=== PATIENT | female | born 1955 | race Caucasian/White ===

== ENCOUNTER 2020-01-13 08:41 | Outpatient (CLI) | payer BC, SELFPAY ==
[2020-01-13 09:19] LABS: Alanine Aminotransferase 37 U/L (4-35); Albumin Level 4.8 g/dL (3.5-5.1); Alkaline Phosphatase 47 U/L (38-126); Anion Gap 11 mmol/L (8-16); Aspartate Amino Transferase 41 U/L (14-36); Bilirubin,Total 0.6 mg/dL (0.2-1.3); Blood Urea Nitrogen 18 mg/dL (7-17); Calcium 10.2 mg/dL (8.4-10.2); Carbon Dioxide 26 mmol/L (22-30); Chloride 99 mmol/L (98-107); Cholesterol 159 mg/dL (0-200); Estimated Glomerular Filt Rate 38; Glucose 117 mg/dL (65-105); HDL Direct 55 mg/dL; Sodium 136 mmol/L (137-145); Triglycerides 226 mg/dL (<150)
[2020-01-13 09:29] LABS: LDL Cholesterol Direct 76 mg/dL
[2020-01-13 10:09] LABS: Hemoglobin A1C 5.8 % (<5.7)
== END 2020-01-13 08:42 | disposition home or self-care (01) ==
PROVIDERS: PCP Family Medicine; Visit Provider Family Medicine
DX: I10 Essential (primary) hypertension (principal); E78.2 Mixed hyperlipidemia; E11.9 Type 2 diabetes mellitus without complications
CPT/HCPCS: 36415; 80053; 80061; 83036

== ENCOUNTER 2020-01-22 15:48 | Outpatient (CLI) | payer BC, SELFPAY ==
--- NOTE | ~2020-01-22 | MM_ITS ---
EXAMINATION: MM screening shereen BI w eric HISTORY: Screening mammogram TECHNIQUE: Craniocaudal and mediolateral oblique 3-D tomosynthesis images were obtained and synthetic 2-D images were generated. CAD analysis was submitted and interpreted. COMPARISON: 08/25/2018 bilateral digital screening mammogram 09/12/2018 diagnostic right digital mammogram and limited right breast ultrasound examination BREAST PARENCHYMAL COMPOSITION: The breasts are almost entirely fatty. FINDINGS: There is no evidence of suspicious mass, calcification, or architectural distortion to sugg est malignancy in either breast. There has been no suspicious interval change. IMPRESSION: 1. No mammographic evidence of malignancy. 2. Recommend routine screening mammography in one year. BI-RADS Category 1: Negative Reviewed, dictated and finalized at location A.
== END 2020-01-22 15:49 | disposition home or self-care (01) ==
LOC: ANHIMG 15:51
PROVIDERS: PCP Family Medicine; Visit Provider Family Medicine
DX: Z12.31 Encounter for screening mammogram for malignant neoplasm of breast (principal)
CPT/HCPCS: 77063; 77067

== ENCOUNTER 2020-02-14 10:51 | Outpatient (CLI) | payer BC, SELFPAY ==
[2020-02-14 11:49] LABS: Hematocrit 38.6 % (37.0-47.0); Hemoglobin 13.3 g/dL (12.0-15.0); Mean Corpuscular HGB Conc 34.5 g/dl (32-36); Mean Corpuscular Hemoglobin 31.1 pg (26-34); Mean Corpuscular Volume 90.4 fl (80-100); Mean Platelet Volume 9.2 fl (7.4-10.4); Platelet Count Result 364 k/mm3 (150-375); Red Blood Count 4.27 M/mm3 (4.2-5.4); Red Cell Distribution Width 12.2 % (11.5-14.5); White Blood Count 8.3 K/mm3 (4.5-10.0)
[2020-02-14 11:53] LABS: Add Urine Microscopic? NO; Appearance Urine Clear (Clear); Bilirubin Urine Negative (Negative); Blood Urine Negative (Negative); Color Urine Straw (Yellow); Glucose Urine UA Negative (Negative); Ketones Urine Negative (Negative); Leukocyte Esterase Ur Negative LEU/UL (NEGATIVE); Nitrate Urine Negative (Negative); Protein Urine Negative (Negative); Specific Grav Ur 1.012 (1.001-1.035); Urobilinogen Urine Negative mg/dL (<2.0)
[2020-02-14 12:00] LABS: Creatinine Urine 80.1 mg/dL; Total Protein Urine Random 9 mg/dL
[2020-02-14 12:03] LABS: Anion Gap 13 mmol/L (8-16); Blood Urea Nitrogen 23 mg/dL (7-17); Calcium 10.2 mg/dL (8.4-10.2); Carbon Dioxide 25 mmol/L (22-30); Chloride 96 mmol/L (98-107); Estimated Glomerular Filt Rate 41; Glucose 119 mg/dL (65-105); Phosphorus 3.4 mg/dL (2.5-4.5); Potassium 4.5 mmol/L (3.4-5.0); Sodium 134 mmol/L (137-145)
[2020-02-14 12:21] LABS: Complement C3 159 mg/dL (88-165)
[2020-02-14 12:37] LABS: Erythrocyte Sedimentation Rate 18 mm/hr (0-20); Vitamin D 25 Hydroxy 47.8 ng/mL
[2020-02-17 20:25] LABS: Complement Total CH50 >60 U/mL (31-60)
[2020-02-18 23:43] LABS: Kappa\\Lambda Light Chains 1.43 (0.26-1.65); Lambda Light Chain 8.7 mg/L (5.7-26.3)
== END 2020-02-14 10:52 | disposition home or self-care (01) ==
LOC: ANHLAB 10:55
PROVIDERS: PCP Family Medicine; Visit Provider Internal Medicine Nephrology
DX: N18.30 Chronic kidney disease, stage 3 unspecified (principal)
CPT/HCPCS: 36415; 80069; 81003; 82306; 82570; 83883; 83970; 84156; 85027; 85652; 86038; 86160; 86162; 86334; 86335

== ENCOUNTER 2020-02-28 10:38 | Outpatient (CLI) | payer BC, SELFPAY ==
--- NOTE | ~2020-02-28 | US_ITS ---
US renal BI 02/28/2020 14:01 Procedure: Realtime transabdominal ultrasound of the kidneys and bladder. Indication: Chronic kidney disease Comparison: Ultrasound dated 03/14/2019 Findings: Renal echotexture is normal bilaterally without hydronephrosis, contour deforming mass or r enal calculus. The right kidney measures 10.8 cm and left kidney measures 10.8 cm. Bladder within no rmal limits. Impression: 1: Unremarkable renal ultrasound. No stones, masses or hydronephrosis. Reviewed, dictated and finalized at location B. Impression: 1: Unremarkable renal ultrasound. No stones, masses or hydronephrosis.
[2020-02-28 16:48] LABS: Total Volume 24 Hour Urine 2800 ml; Urea Nitrogen 24 Hour Urine 9.9 G/DAY (12-20)
== END 2020-02-28 10:39 | disposition home or self-care (01) ==
LOC: ANHIMG 10:42
PROVIDERS: PCP Family Medicine; Visit Provider Internal Medicine Nephrology
DX: N18.32 Chronic kidney disease, stage 3b (principal)
CPT/HCPCS: 76775; 81050; 84540; 86335

== ENCOUNTER 2020-05-06 11:23 | Outpatient (CLI) | payer BC, SELFPAY ==
--- NOTE | ~2020-05-06 | US_ITS ---
EXAMINATION: US renal BI EXAM DATE: 05/06/2020 12:13 INDICATION: Chronic kidney disease, renal failure. TECHNIQUE: Multiple grayscale and Doppler images of the kidneys were obtained (by a technologist who performed the scan) and subsequently reviewed. Comparison is made to prior examination from 0. FINDINGS: There is significant bilateral renal cortical thinning with large quantity of echogenic hil ar fat. Right kidney: There is normal contour and echogenicity. It measures 11.5 x 4.7 x 4.2 centimeters. T here are no focal renal lesions identified. There is no hydronephrosis. Left kidney: There is normal contour and echogenicity. It measures 9.6 x 5.5 x 4.5 centimeters. The re are no focal renal lesions identified. There is no hydronephrosis. Bladder unremarkable. IMPRESSION: 1. Bilateral renal cortical thinning with normal overall size. 2. No hydronephrosis. Reviewed, dictated and finalized at location B. RER'S AIDE
[2020-05-06 12:47] LABS: Albumin Level 4.5 g/dL (3.5-5.1); Anion Gap 9 mmol/L (8-16); Blood Urea Nitrogen 27 mg/dL (7-17); Carbon Dioxide 25 mmol/L (22-30); Chloride 101 mmol/L (98-107); Estimated Glomerular Filt Rate 45; Glucose 97 mg/dL (65-105); Phosphorus 4.2 mg/dL (2.5-4.5); Potassium 4.3 mmol/L (3.4-5.0); Sodium 135 mmol/L (137-145)
[2020-05-06 12:51] LABS: Creatinine Urine 29.4 mg/dL; Total Protein Urine Random 10 mg/dL; Ur Ttl Prot Creatinine Ratio 0.34 mg/mg (0-0.20)
== END 2020-05-06 11:24 | disposition home or self-care (01) ==
PROVIDERS: PCP Family Medicine; Visit Provider Internal Medicine Nephrology
DX: N18.32 Chronic kidney disease, stage 3b (principal)
CPT/HCPCS: 36415; 76775; 80069; 82570; 84156

== ENCOUNTER 2020-11-09 09:35 | Outpatient (CLI) | payer BC, SELFPAY ==
[2020-11-09 10:06] LABS: Creatinine Urine 96.6 mg/dL; Total Protein Urine Random 8 mg/dL; Ur Ttl Prot Creatinine Ratio 0.08 mg/mg (0-0.20)
[2020-11-09 10:08] LABS: Alanine Aminotransferase 24 U/L (4-35); Albumin Level 4.5 g/dL (3.5-5.1); Alkaline Phosphatase 73 U/L (38-126); Anion Gap 11 mmol/L (8-16); Aspartate Amino Transferase 31 U/L (14-36); Bilirubin,Total 0.9 mg/dL (0.2-1.3); Blood Urea Nitrogen 14 mg/dL (7-17); Calcium 10.2 mg/dL (8.4-10.2); Carbon Dioxide 27 mmol/L (22-30); Chloride 100 mmol/L (98-107); Cholesterol 176 mg/dL (0-200); Estimated Glomerular Filt Rate > 60; Glucose 105 mg/dL (65-105); HDL Direct 54 mg/dL; Potassium 4.1 mmol/L (3.4-5.0); Sodium 138 mmol/L (137-145); Triglycerides 229 mg/dL (<150)
[2020-11-09 10:09] LABS: Albumin Level 4.5 g/dL (3.5-5.1); Anion Gap 10 mmol/L (8-16); Blood Urea Nitrogen 15 mg/dL (7-17); Calcium 10.1 mg/dL (8.4-10.2); Carbon Dioxide 26 mmol/L (22-30); Chloride 100 mmol/L (98-107); Estimated Glomerular Filt Rate > 60; Glucose 105 mg/dL (65-105); Phosphorus 4.3 mg/dL (2.5-4.5); Potassium 4.2 mmol/L (3.4-5.0); Sodium 136 mmol/L (137-145)
[2020-11-09 10:19] LABS: LDL Cholesterol Direct 71 mg/dL
[2020-11-09 10:44] LABS: Vitamin D 25 Hydroxy 50.1 ng/mL
== END 2020-11-09 09:36 | disposition home or self-care (01) ==
PROVIDERS: PCP Family Medicine; Referring Provider Internal Medicine Nephrology; Visit Provider Family Medicine
DX: E78.2 Mixed hyperlipidemia (principal); E11.9 Type 2 diabetes mellitus without complications; E55.9 Vitamin D deficiency, unspecified; N18.31 Chronic kidney disease, stage 3a; I12.9 Hypertensive chronic kidney disease with stage 1 through stage 4 chronic kidney disease, or unspecified chronic kidney disease
CPT/HCPCS: 36415; 80053; 80061; 80069; 82306; 82570; 83036; 84156

== ENCOUNTER 2021-03-11 16:24 | Outpatient (CLI) | payer BC, SELFPAY ==
--- NOTE | ~2021-03-11 | MM_ITS ---
EXAMINATION: MM screening shereen BI w eric HISTORY: Screening TECHNIQUE: Craniocaudal and mediolateral oblique 3-D tomosynthesis images were obtained and synthetic 2-D images were generated. CAD analysis was submitted and interpreted. COMPARISON: Comparison to multiple prior studies sequentially, with oldest reviewed study dated 08/25. BREAST PARENCHYMAL COMPOSITION: There are scattered areas of fibroglandular density. FINDINGS: There is no evidence of suspicious mass, calcification, or architectural distortion to sugg est malignancy in either breast. There has been no suspicious interval change. IMPRESSION: 1. No mammographic evidence of malignancy. 2. Recommend routine screening mammography in one year. BI-RADS Category 1: Negative Reviewed, dictated and finalized at location A.
--- NOTE | ~2021-03-11 | DEXA_ITS ---
Bone Density Report Name: Melissa Aranda Age: 65 Sex: Female Ethnicity: White Date of : 1955 Indication: monitoring treatment; history of glucocorticoids; hysterectomy; postmenopausal Referring Provider: ANA GROSS Study: Bone densitometry was performed. Exam Date: March 11, 2021 Accession number: [id number] Bone Density: Region BMD T-score Z-score Classification AP Spine (L1-L4) 1.156 1.0 2.9 Normal Femoral Neck (Left) 0.769 -0.7 0.9 Normal Total Hip (Left) 1.067 1.0 2.4 Normal Total Hip Bilateral Avg 1.027 0.7 2.1 Normal Femoral Neck (Right) 0.727 -1.1 0.5 Osteopenia Total Hip (Right) 0.987 0.4 1.7 Normal World Health Organization criteria for BMD impression classify patients as: Normal (T-score at or above -1.0), Osteopenia (T-score between -1.0 and -2.5), or Osteoporosis (T-score at or below -2.5). 10-year Fracture Risk: FRAX not reported because: Treated for osteoporosis Previous Exams: Region Exam Age BMD T-score BMD Change BMD Change Date g/cm2 vs Baseline vs Previous AP Spine(L1-L4) 03/11/2021 65 1.156 1.0 0.087(8.2%)# 0.047(4.2%)* 09/30/2018 62 1.109 0.6 0.040(3.8%)# 0.047(4.5%)* 08/23/2014 58 1.061 0.1 -0.007(-0.7%)# -0.007(-0.7%)# 04/16/2009 53 1.069 0.2 Total Hip(Left) 03/11/2021 65 1.067 1.0 0.117(12.3%)# 0.014(1.3%) 09/30/2018 62 1.053 0.9 0.103(10.8%)# 0.051(5.1%)* 08/23/2014 58 1.002 0.5 0.052(5.4%)# 0.052(5.4%)# 04/16/2009 53 0.951 0.1 Total Hip(Right) 03/11/2021 65 0.987 0.4 0.079(8.7%)# -0.003(-0.3%) 09/30/2018 62 0.990 0.4 0.082(9.0%)# 0.031(3.2%)* 08/23/2014 58 0.959 0.1 0.051(5.6%)# 0.051(5.6%)# 04/16/2009 53 0.908 -0.3 *Denotes significance at 95% confidence level, LSC for AP Spine = 0.022 g/cm2, LSC for Total Hip = 0.027 g/cm2 Clinical Information Provided by Patient: Has taken Glucocorticoids Is being treated for osteoporosis Has used the following medications: Vitamin D, Calcium Has the following medical conditions: Hysterectomy Patient maximum height was 65 Menopause Age: 28 Does not regularly consume dairy products Drinks caffeinated beverages Onset of menses at age 9 Number of children 3 Impression: The patient has low bone mass, based on the Right Femoral Neck T-score. The patient has risk factors, including: history of glucocorticoid therapy. No significant bone loss was observed. D
== END 2021-03-11 16:25 | disposition home or self-care (01) ==
PROVIDERS: PCP Family Medicine; Visit Provider Family Medicine
DX: Z12.31 Encounter for screening mammogram for malignant neoplasm of breast (principal); Z78.0 Asymptomatic menopausal state; M85.851 Other specified disorders of bone density and structure, right thigh
CPT/HCPCS: 77063; 77067; 77080

== ENCOUNTER 2021-07-19 11:38 | Outpatient (CLI) | payer BC, SELFPAY ==
[2021-07-19 12:50] LABS: Hemoglobin A1C 6.1 % (<5.7)
[2021-07-19 13:07] LABS: Alanine Aminotransferase 34 U/L (4-35); Albumin Level 4.8 g/dL (3.5-5.1); Alkaline Phosphatase 82 U/L (38-126); Anion Gap 11 mmol/L (8-16); Aspartate Amino Transferase 39 U/L (14-36); Bilirubin,Total 0.8 mg/dL (0.2-1.3); Blood Urea Nitrogen 15 mg/dL (7-17); Calcium 9.6 mg/dL (8.4-10.2); Carbon Dioxide 25 mmol/L (22-30); Chloride 97 mmol/L (98-107); Cholesterol 179 mg/dL (0-200); Estimated Glomerular Filt Rate > 60; Glucose 106 mg/dL (65-110); HDL Direct 45 mg/dL; Potassium 4.3 mmol/L (3.4-5.0); Sodium 133 mmol/L (137-145); Triglycerides 294 mg/dL (<150)
[2021-07-19 13:17] LABS: LDL Cholesterol Direct 83 mg/dL
== END 2021-07-19 11:39 | disposition home or self-care (01) ==
PROVIDERS: PCP Family Medicine; Visit Provider Family Medicine
DX: Z00.00 Encounter for general adult medical examination without abnormal findings (principal); E11.9 Type 2 diabetes mellitus without complications
CPT/HCPCS: 36415; 80053; 80061; 83036

== ENCOUNTER 2021-09-26 12:23 | Outpatient (CLI) | payer BC, SELFPAY ==
--- NOTE | ~2021-09-26 | XR_ITS ---
EXAMINATION: XR hand RT min 3V DATE: 09/26/2021 12:39 INDICATION: Pain in unspecified joint, right hand. TECHNIQUE: 3 views of right hand were obtained. COMPARISON: None. FINDINGS: There is radial subluxation of second distal phalanx with respect to the middle phalanx and ulnar subluxation of third distal phalanx with respect to the middle phalanx. No fracture. There is mild osteoarthritis of first carpometacarpal joint, second and third metacarpophalangeal joints, and some of the interphalangeal joints. There is moderate osteoarthritis of first interphalangeal joint a nd second and third distal interphalangeal joints. IMPRESSION: 1. Polyarticular osteoarthritis. Reviewed, dictated and finalized at location A.
== END 2021-09-26 12:24 | disposition home or self-care (01) ==
PROVIDERS: PCP Family Medicine; Visit Provider Physician Assistant Medical
DX: M19.041 Primary osteoarthritis, right hand (principal)
CPT/HCPCS: 73130

== ENCOUNTER 2021-11-11 10:15 | Outpatient (CLI) | payer BC, SELFPAY ==
[2021-11-11 10:59] LABS: Hemoglobin 14.3 g/dL (12.0-15.0); Mean Corpuscular Hemoglobin 31.1 pg (26-34); Mean Corpuscular Volume 91.3 fl (80-100); Platelet Count Result 316 k/mm3 (150-375); Red Cell Distribution Width 13.2 % (11.5-14.5); White Blood Count 9.9 K/mm3 (4.5-10.0)
[2021-11-11 11:08] LABS: Creatinine Urine 69.7 mg/dL; Total Protein Urine Random 11 mg/dL; Ur Ttl Prot Creatinine Ratio 0.16 mg/mg (0-0.20)
[2021-11-11 11:21] LABS: Anion Gap 12 mmol/L (8-16); Blood Urea Nitrogen 14 mg/dL (7-17); Carbon Dioxide 25 mmol/L (22-30); Chloride 100 mmol/L (98-107); Estimated Glomerular Filt Rate 55; Glucose 115 mg/dL (65-110); Phosphorus 3.7 mg/dL (2.5-4.5); Potassium 4.1 mmol/L (3.4-5.0); Sodium 137 mmol/L (137-145)
== END 2021-11-11 10:16 | disposition home or self-care (01) ==
LOC: ANHLAB 10:17
PROVIDERS: PCP Family Medicine; Visit Provider Internal Medicine Nephrology
DX: I12.9 Hypertensive chronic kidney disease with stage 1 through stage 4 chronic kidney disease, or unspecified chronic kidney disease (principal); N18.31 Chronic kidney disease, stage 3a
CPT/HCPCS: 36415; 80069; 82570; 83970; 84156; 85027

== ENCOUNTER 2022-02-13 12:24 | Outpatient (CLI) | payer BC, SELFPAY ==
--- NOTE | ~2022-02-13 | XR_ITS ---
EXAMINATION: XR lumbar spine min 4V DATE: 02/13/2022 12:53 INDICATION: Low back pain. TECHNIQUE: 5 views of lumbar spine were obtained. COMPARISON: None. FINDINGS: There is 6 degrees dextrocurvature of lumbar spine. There is 3 mm anterolisthesis of L4 on L5. Vertebral body heights are normal. There is mildly decreased disc height at L3-L4 and L4-L5. Ther e are endplate osteophytes at all levels. There is multilevel facet joint osteoarthritis, severe bila terally at L4-L5 and L5-S1 and on the right at L3-L4. IMPRESSION: 1. Mild lumbar spondylosis. Reviewed, dictated and finalized at location B. IMPRESSION: 1. Mild lumbar spondylosis.
== END 2022-02-13 12:25 | disposition home or self-care (01) ==
LOC: ANHIMG 12:27
PROVIDERS: PCP Family Medicine; Visit Provider Physician Assistant Medical
DX: M47.817 Spondylosis without myelopathy or radiculopathy, lumbosacral region (principal)
CPT/HCPCS: 72110

== ENCOUNTER 2022-04-03 09:27 | Outpatient (CLI) | payer BC, SELFPAY ==
--- NOTE | ~2022-04-03 | MR_ITS ---
EXAMINATION: MR lumbar spine wo con DATE: 04/03/2022 10:35 INDICATION: Radiculopathy of lumbar region. TECHNIQUE: Magnetic resonance imaging (MRI) of the lumbar spine was performed without intravenous con trast. Sequences included sagittal T2-weighted FSE, sagittal T2-weighted FS FSE, sagittal T1-weighted FSE, and axial T2-weighted FSE. COMPARISON: Lumbar spine radiographs 02/13/2022 FINDINGS: There is 6 degrees dextrocurvature of lumbar spine. There are chronic compression fractures of T11 and T12 with less than 1/5 loss of height. There is mildly decreased disc height at L3-L4. Th e distal spinal cord signal intensity is normal. The conus medullaris is at L2. The following disc le vels are specifically discussed: L1-L2: The disc does not extend beyond the endplate margin. There is mild right and severe left facet joint osteoarthritis. There is no neural foraminal stenosis. There is no central canal stenosis. L2-L3: The disc is bulging. There is moderate right and mild left facet joint osteoarthritis. There i s mild bilateral neural foraminal stenosis. There is mild central canal stenosis. L3-L4: The disc is bulging and has an annular fissure. There is severe right and moderate left facet joint osteoarthritis. There is mild bilateral neural foraminal stenosis. There is mild central canal stenosis. L4-L5: The disc is bulging. There is severe bilateral facet joint osteoarthritis. There is mild bilat eral neural foraminal stenosis. There is no central canal stenosis. L5-S1: The disc is bulging. There is severe bilateral facet joint osteoarthritis. There is mild bilat eral neural foraminal stenosis. There is mild central canal stenosis. IMPRESSION: 1. Mild lumbar spondylosis. Reviewed, dictated and finalized at location A. SITE IMPRESSION: 1. Mild lumbar spondylosis.
== END 2022-04-03 09:28 | disposition home or self-care (01) ==
PROVIDERS: PCP Family Medicine; Visit Provider Physical Medicine & Rehabilitation
DX: M54.16 Radiculopathy, lumbar region (principal); M43.06 Spondylolysis, lumbar region
CPT/HCPCS: 72148

== ENCOUNTER 2022-05-19 12:30 | Outpatient (CLI) | payer BC, SELFPAY ==
[2022-05-19 13:14] LABS: Hematocrit 40.2 % (37.0-47.0); Hemoglobin 13.7 g/dL (12.0-15.0); Mean Corpuscular HGB Conc 34.1 g/dl (32-36); Mean Corpuscular Hemoglobin 30.9 pg (26-34); Mean Corpuscular Volume 90.7 fl (80-100); Platelet Count Result 324 k/mm3 (150-375); Red Blood Count 4.43 M/mm3 (4.2-5.4); Red Cell Distribution Width 13.3 % (11.5-14.5); White Blood Count 9.4 K/mm3 (4.5-10.0)
[2022-05-19 13:21] LABS: Creatinine Urine 38.5 mg/dL; Total Protein Urine Random 9 mg/dL; Ur Ttl Prot Creatinine Ratio 0.23 mg/mg (0-0.20)
[2022-05-19 13:25] LABS: Albumin Level 5.1 g/dL (3.5-5.1); Anion Gap 12 mmol/L (8-16); Blood Urea Nitrogen 16 mg/dL (7-17); Calcium 10.1 mg/dL (8.4-10.2); Carbon Dioxide 26 mmol/L (22-30); Chloride 98 mmol/L (98-107); Estimated Glomerular Filt Rate > 60; Glucose 112 mg/dL (65-110); Phosphorus 4.1 mg/dL (2.5-4.5); Potassium 3.7 mmol/L (3.4-5.0); Sodium 136 mmol/L (137-145)
[2022-05-19 14:02] LABS: Parathyroid Intact 7.9 pg/mL (7.5-53.5)
== END 2022-05-19 12:31 | disposition home or self-care (01) ==
PROVIDERS: PCP Family Medicine; Visit Provider Internal Medicine Nephrology
DX: N18.31 Chronic kidney disease, stage 3a (principal)
CPT/HCPCS: 36415; 80069; 82570; 83970; 84156; 85027

== ENCOUNTER 2022-11-11 12:13 | Outpatient (CLI) | payer BC, SELFPAY ==
[2022-11-11 13:07] LABS: Albumin Level 4.8 g/dL (3.5-5.1); Anion Gap 10 mmol/L (8-16); Blood Urea Nitrogen 16 mg/dL (7-17); Calcium 9.7 mg/dL (8.4-10.2); Carbon Dioxide 28 mmol/L (22-30); Chloride 100 mmol/L (98-107); Estimated Glomerular Filt Rate > 60; Glucose 103 mg/dL (65-110); Phosphorus 3.9 mg/dL (2.5-4.5); Potassium 4.2 mmol/L (3.4-5.0); Sodium 138 mmol/L (137-145)
[2022-11-11 13:08] LABS: Creatinine Urine 110.1 mg/dL
[2022-11-11 14:08] LABS: Total Protein Urine Random < 5 mg/dL; Ur Ttl Prot Creatinine Ratio < 0.05 mg/mg (0-0.20)
== END 2022-11-11 12:14 | disposition home or self-care (01) ==
LOC: ANHLAB 12:14
PROVIDERS: PCP Family Medicine; Visit Provider Internal Medicine Nephrology
DX: I12.9 Hypertensive chronic kidney disease with stage 1 through stage 4 chronic kidney disease, or unspecified chronic kidney disease (principal); N18.31 Chronic kidney disease, stage 3a
CPT/HCPCS: 36415; 80069; 82570; 84156

== ENCOUNTER 2022-12-18 12:27 | Outpatient (CLI) | payer BC, SELFPAY ==
[2022-12-18 13:32] LABS: Albumin Level 4.8 g/dL (3.5-5.1); Anion Gap 10 mmol/L (8-16); Blood Urea Nitrogen 17 mg/dL (7-17); Carbon Dioxide 26 mmol/L (22-30); Chloride 91 mmol/L (98-107); Estimated Glomerular Filt Rate 55; Glucose 100 mg/dL (65-110); Phosphorus 4.5 mg/dL (2.5-4.5); Potassium 4.1 mmol/L (3.4-5.0); Sodium 127 mmol/L (137-145)
== END 2022-12-18 12:28 | disposition home or self-care (01) ==
PROVIDERS: PCP Family Medicine; Visit Provider Internal Medicine Nephrology
DX: N18.31 Chronic kidney disease, stage 3a (principal)
CPT/HCPCS: 36415; 80069

== ENCOUNTER 2023-01-01 14:36 | Outpatient (CLI) | payer BC, SELFPAY ==
[2023-01-01 15:24] LABS: Hematocrit 40.1 % (37.0-47.0); Hemoglobin 13.3 g/dL (12.0-15.0); Mean Corpuscular HGB Conc 33.2 g/dl (32-36); Mean Corpuscular Hemoglobin 30.7 pg (26-34); Mean Corpuscular Volume 92.6 fl (80-100); Mean Platelet Volume 9.1 fl (7.4-10.4); Platelet Count Result 319 k/mm3 (150-375); Red Blood Count 4.33 M/mm3 (4.2-5.4); Red Cell Distribution Width 12.3 % (11.5-14.5); White Blood Count 10.6 K/mm3 (4.5-10.0)
[2023-01-01 15:33] LABS: Creatinine Urine 52.8 mg/dL; Total Protein Urine Random 9 mg/dL; Ur Ttl Prot Creatinine Ratio 0.17 mg/mg (0-0.20)
[2023-01-01 15:35] LABS: Sodium Urine Random 41 meq/L
[2023-01-01 15:42] LABS: Anion Gap 12 mmol/L (8-16); Blood Urea Nitrogen 15 mg/dL (7-17); Carbon Dioxide 26 mmol/L (22-30); Chloride 94 mmol/L (98-107); Estimated Glomerular Filt Rate > 60; Glucose 126 mg/dL (65-110); Phosphorus 4.8 mg/dL (2.5-4.5); Potassium 3.7 mmol/L (3.4-5.0); Sodium 132 mmol/L (137-145)
[2023-01-01 15:58] LABS: Parathyroid Intact 18.6 pg/mL (7.5-53.5)
[2023-01-01 16:10] LABS: Cortisol Random 5.19 ug/dL
[2023-01-05 13:51] LABS: Osmolality, Urine 221 mOsm/kg (50-1200)
== END 2023-01-01 14:37 | disposition home or self-care (01) ==
LOC: ANHLAB 14:37
PROVIDERS: PCP Family Medicine; Visit Provider Internal Medicine Nephrology
DX: E87.1 Hypo-osmolality and hyponatremia (principal); N18.31 Chronic kidney disease, stage 3a
CPT/HCPCS: 36415; 80069; 82533; 82570; 83930; 83935; 83970; 84156; 84300; 84443; 85027

== ENCOUNTER 2023-02-12 12:32 | Outpatient (CLI) | payer BC, SELFPAY ==
[2023-02-12 13:05] LABS: Albumin Level 4.6 g/dL (3.5-5.1); Anion Gap 7 mmol/L (8-16); Blood Urea Nitrogen 10 mg/dL (7-17); Calcium 9.5 mg/dL (8.4-10.2); Carbon Dioxide 27 mmol/L (22-30); Chloride 102 mmol/L (98-107); Estimated Glomerular Filt Rate > 60; Glucose 94 mg/dL (65-110); Phosphorus 3.7 mg/dL (2.5-4.5); Potassium 3.8 mmol/L (3.4-5.0); Sodium 136 mmol/L (137-145)
== END 2023-02-12 12:33 | disposition home or self-care (01) ==
PROVIDERS: PCP Family Medicine; Visit Provider Internal Medicine Nephrology
DX: E87.1 Hypo-osmolality and hyponatremia (principal)
CPT/HCPCS: 36415; 80069

== ENCOUNTER 2023-02-17 11:51 | Outpatient (CLI) | payer BC, SELFPAY ==
[2023-02-17 12:54] LABS: Alanine Aminotransferase 34 U/L (6-35); Albumin Level 4.6 g/dL (3.5-5.1); Alkaline Phosphatase 72 U/L (38-126); Anion Gap 10 mmol/L (8-16); Aspartate Amino Transferase 42 U/L (14-36); Bilirubin,Total 1.2 mg/dL (0.2-1.3); Blood Urea Nitrogen 12 mg/dL (7-17); Calcium 9.6 mg/dL (8.4-10.2); Carbon Dioxide 27 mmol/L (22-30); Chloride 98 mmol/L (98-107); Cholesterol 165 mg/dL (0-200); Estimated Glomerular Filt Rate > 60; Glucose 91 mg/dL (65-110); HDL Direct 46 mg/dL; Potassium 4.1 mmol/L (3.4-5.0); Sodium 135 mmol/L (137-145); Triglycerides 248 mg/dL (<150)
[2023-02-17 12:55] LABS: Hemoglobin A1C 5.8 % (<5.7)
[2023-02-17 13:03] LABS: LDL Cholesterol Direct 82 mg/dL
== END 2023-02-17 11:52 | disposition home or self-care (01) ==
LOC: ANHLAB 11:52
PROVIDERS: PCP Family Medicine; Visit Provider Family Medicine
DX: E78.2 Mixed hyperlipidemia (principal); E11.9 Type 2 diabetes mellitus without complications
CPT/HCPCS: 36415; 80053; 80061; 83036

== ENCOUNTER 2023-06-06 13:04 | Emergency (ER) | payer BC, SELFPAY ==
[2023-06-06 13:16] VITALS: BP 159/89; PULSE 70; RESP 16; TEMP 37.4; O2SAT 99
--- NOTE | 2023-06-06 13:59 | ED.URI ---
HPI - URI/Sore Throat General Chief Complaint: Upper Respiratory Infection Stated Complaint: sinus issue Time Seen by Provider: 06/06/23 13:59 Source: patient, RN notes reviewed and old records reviewed Mode of arrival: ambulatory Limitations: no limitations History of Present Illness HPI Narrative: 67-year-old female presents to the [facility] with complaints of sinus pressure for 2 weeks. Has been taking meclizine for her dizziness. Is not having any symptoms sinus pain, pressure, nasal drainage ear discomfort. Denies fevers Onset (ago): week(s) (2) Treatments prior to arrival: cold medicine Related Data Home Medications Medication Instructions Recorded Confirmed aspirin 81 mg tablet,delayed 81 mg PO DAILY 06/27/19 06/06/23 release (Adult Low Dose Aspirin) calcium carbonate 600 mg-vitamin 1 tablet PO BID 10/10/19 06/06/23 D3 10 mcg (400 unit) tablet (Calcium with Vitamin D) sxzkesdtftfo-Zh-iobn-minerals tablet PO 10/10/19 02/16/23 (Multiple Vitamin, Womens tablet) Allergies Allergy/AdvReac Type Severity Reaction Status Date / Time codeine Allergy Unknown rash Verified 06/06/23 13:26 hydrocodone Allergy Unknown rash Verified 06/06/23 13:26 Review of Systems Review of Systems: All systems reviewed & are unremarkable except as noted in HPI and below Constitutional: Constitutional: Reports no additional constitutional complaints Eyes: Eyes: Reports no additional eye complaints ENT: Reports as per HPI Cardiovascular: Cardiovascular: Reports no additional cardiovascular complaints, Denies chest pain and Denies dyspnea Respiratory: Respiratory: Reports no additional respiratory complaints, Denies chest congestion, Denies cough and Denies dyspnea Gastrointestinal: Gastrointestinal: Reports no additional gastrointestinal complaints, Denies abdominal pain, Denies nausea and Denies vomiting Musculoskeletal: Musculoskeletal: Reports no additional musculoskeletal complaints Integumentary/Breasts: Skin/Breast: Reports system reviewed and no additional complaints, except as docu Neurologic: Reports system reviewed and no additional complaints, except as documented Psychiatric: Psychiatric: Reports no additional psychiatric complaints Allergic/Immunologic: Allergic/Immunologic: Reports no additional allergic/immunologic complaints [facility] Past Medical History Medical History Arthritic-like pain Atypical nevus of back Bronchitis Hyperlipidemia Hypertension Kidney disease due to severe high blood pressure 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 of right middle finger Type 2 diabetes mellitus Surgical History Surgical History H/O left wrist surgery H/O sinus surgery H/O: hysterectomy History of tonsillectomy Hx of appendectomy Family History Family History Mother Diabetes mellitus Family history of malignant neoplasm Rhabdomyosarcoma Sibling Hypertension Lymphoma Family history of malignant melanoma Crohn's disease Father Hypertension Cerebrovascular accident Social History Social History Smoking status: Never smoker Second hand tobacco smoke exposure: No Alcohol intake: never Substance use: never Substance use type: does not use Lack of Transportation: No Lack of Food: Never True Current Housing: I Have Housing Concerned About Future Housing: No Difficulty Paying Gas/Electric Bills: No Difficulty Paying for Meds: No Currently Unemployed: Decline to Answer Education: High School Diploma/GED Difficulty w/ Childcare or Family Care: No Living arrangements: alone Occupation/Education: occupation Gender identity (if verbalized by
== END 2023-06-06 14:32 | disposition home or self-care (01) ==
PROVIDERS: Emergency Provider Nurse Practitioner; PCP Family Medicine
DX: J01.90 Acute sinusitis, unspecified (principal); H65.02 Acute serous otitis media, left ear; E78.5 Hyperlipidemia, unspecified; I10 Essential (primary) hypertension; M19.041 Primary osteoarthritis, right hand; N28.9 Disorder of kidney and ureter, unspecified; E11.9 Type 2 diabetes mellitus without complications
CPT/HCPCS: 99213; G0463

== ENCOUNTER 2023-06-10 10:14 | Outpatient (CLI) | payer BC, SELFPAY ==
[2023-06-10 11:03] LABS: Albumin Level 4.6 g/dL (3.5-5.1); Anion Gap 11 mmol/L (8-16); Blood Urea Nitrogen 28 mg/dL (7-17); Calcium 9.9 mg/dL (8.4-10.2); Carbon Dioxide 27 mmol/L (22-30); Chloride 97 mmol/L (98-107); Estimated Glomerular Filt Rate > 60; Glucose 87 mg/dL (65-110); Potassium 4.6 mmol/L (3.4-5.0); Sodium 135 mmol/L (137-145)
[2023-06-10 11:05] LABS: Alanine Aminotransferase 25 U/L (6-35); Albumin Level 4.6 g/dL (3.5-5.1); Alkaline Phosphatase 61 U/L (38-126); Anion Gap 10 mmol/L (8-16); Aspartate Amino Transferase 24 U/L (14-36); Bilirubin,Total 0.8 mg/dL (0.2-1.3); Blood Urea Nitrogen 27 mg/dL (7-17); Carbon Dioxide 28 mmol/L (22-30); Chloride 97 mmol/L (98-107); Cholesterol 214 mg/dL (0-200); Estimated Glomerular Filt Rate > 60; Glucose 87 mg/dL (65-110); HDL Direct 102 mg/dL; Potassium 4.5 mmol/L (3.4-5.0); Sodium 135 mmol/L (137-145); Triglycerides 293 mg/dL (<150)
[2023-06-10 11:13] LABS: LDL Cholesterol Direct 83 mg/dL
[2023-06-10 11:23] LABS: Hematocrit 40.5 % (37.0-47.0); Hemoglobin 13.5 g/dL (12.0-15.0); Mean Corpuscular HGB Conc 33.3 g/dl (32-36); Mean Corpuscular Hemoglobin 30.2 pg (26-34); Mean Corpuscular Volume 90.6 fl (80-100); Mean Platelet Volume 9.2 fl (7.4-10.4); Platelet Count Result 303 k/mm3 (150-375); Red Blood Count 4.47 M/mm3 (4.2-5.4); Red Cell Distribution Width 14.1 % (11.5-14.5); White Blood Count 14.6 K/mm3 (4.5-10.0)
[2023-06-10 11:24] LABS: Basophils Absolute Auto 0.1 K/mm3 (0.0-0.1); Basophils Percent Auto 0.3 % (0.2-1.2); Eosinophils Percent Auto 0.1 % (0-4.4); Hematocrit 41.1 % (37.0-47.0); Hemoglobin 13.5 g/dL (12.0-15.0); Immature Granulocyte Absolute 0.32 K/mm3 (0.00-0.031); Immature Granulocyte Percent A 2.2 % (0-0.5); Lymphocytes Absolute Auto 3.53 K/mm3 (0.9-3.2); Lymphocytes Percent Auto 24.2 % (18.3-44.2); Mean Corpuscular HGB Conc 32.8 g/dl (32-36); Mean Corpuscular Hemoglobin 30.2 pg (26-34); Mean Corpuscular Volume 91.9 fl (80-100); Mean Platelet Volume 9.1 fl (7.4-10.4); Monocytes Percent Auto 6.6 % (2.6-8.5); Neutrophils Absolute Auto 9.7 K/mm3 (1.3-6.7); Neutrophils Percent Auto 66.6 % (45.5-73.1); Platelet Count Result 305 k/mm3 (150-375); Red Blood Count 4.47 M/mm3 (4.2-5.4); Red Cell Distribution Width 14.2 % (11.5-14.5); White Blood Count 14.6 K/mm3 (4.5-10.0)
[2023-06-10 11:42] LABS: Hemoglobin A1C 6.4 % (<5.7)
[2023-06-10 12:00] LABS: Vitamin D 25 Hydroxy 31.1 ng/mL
[2023-06-10 12:24] LABS: Creatinine Urine 104.4 mg/dL
[2023-06-10 12:29] LABS: MALB Creatinine Ratio 14.4 mg/g (0-30)
[2023-06-10 15:41] LABS: Creatinine Urine 104.1 mg/dL; Total Protein Urine Random 6 mg/dL; Ur Ttl Prot Creatinine Ratio 0.06 mg/mg (0-0.20)
== END 2023-06-10 10:15 | disposition home or self-care (01) ==
LOC: ANHLAB 10:16
PROVIDERS: PCP Family Medicine; Visit Provider Internal Medicine Nephrology
DX: N18.31 Chronic kidney disease, stage 3a (principal); E87.1 Hypo-osmolality and hyponatremia; E78.2 Mixed hyperlipidemia; E11.9 Type 2 diabetes mellitus without complications; E55.9 Vitamin D deficiency, unspecified; D72.829 Elevated white blood cell count, unspecified
CPT/HCPCS: 36415; 80053; 80061; 80069; 82043; 82306; 82570; 83036; 84156; 85025; 85027

== ENCOUNTER 2023-09-10 12:26 | Outpatient (CLI) | payer BC, SELFPAY ==
[2023-09-10 13:29] LABS: Albumin Level 5.2 g/dL (3.5-5.1); Anion Gap 14 mmol/L (4-12); Blood Urea Nitrogen 12 mg/dL (7-17); Calcium 10.6 mg/dL (8.4-10.2); Carbon Dioxide 22 mmol/L (22-30); Chloride 102 mmol/L (98-107); Estimated Glomerular Filt Rate > 60; Glucose 103 mg/dL (65-110); Phosphorus 4.9 mg/dL (2.5-4.5); Potassium 3.9 mmol/L (3.4-5.0); Sodium 138 mmol/L (137-145)
[2023-09-10 14:00] LABS: Cortisol Random 4.07 ug/dL
== END 2023-09-10 12:27 | disposition home or self-care (01) ==
LOC: ANHLAB 12:27
PROVIDERS: PCP Family Medicine; Visit Provider Internal Medicine Nephrology
DX: E87.1 Hypo-osmolality and hyponatremia (principal); N18.31 Chronic kidney disease, stage 3a
CPT/HCPCS: 36415; 80069; 82533

== ENCOUNTER 2023-11-25 14:02 | Outpatient (CLI) | payer BC, SELFPAY ==
[2023-11-25 15:00] LABS: Anion Gap 11 mmol/L (4-12); Blood Urea Nitrogen 9 mg/dL (7-17); Calcium 9.2 mg/dL (8.4-10.2); Carbon Dioxide 26 mmol/L (22-30); Chloride 100 mmol/L (98-107); Estimated Glomerular Filt Rate > 60; Glucose 89 mg/dL (65-110); Potassium 3.9 mmol/L (3.4-5.0); Sodium 137 mmol/L (137-145)
== END 2023-11-25 14:03 | disposition home or self-care (01) ==
LOC: ANHLAB 14:04
PROVIDERS: PCP Family Medicine; Visit Provider Internal Medicine Nephrology
DX: N18.31 Chronic kidney disease, stage 3a (principal)
CPT/HCPCS: 36415; 80048

== ENCOUNTER 2024-05-04 11:34 | Outpatient (CLI) | payer BC, SELFPAY ==
[2024-05-04 12:02] LABS: Hematocrit 41.3 % (37.0-47.0); Mean Corpuscular HGB Conc 33.9 g/dl (32-36); Mean Corpuscular Volume 91.6 fl (80-100); Mean Platelet Volume 9.4 fl (7.4-10.4); Platelet Count Result 282 k/mm3 (150-375); Red Blood Count 4.51 M/mm3 (4.2-5.4); Red Cell Distribution Width 13.2 % (11.5-14.5); White Blood Count 7.3 K/mm3 (4.5-10.0)
[2024-05-04 12:14] LABS: Alanine Aminotransferase 23 U/L (6-35); Albumin Level 4.7 g/dL (3.5-5.1); Alkaline Phosphatase 85 U/L (38-126); Aspartate Amino Transferase 36 U/L (14-36); Bilirubin,Total 1.5 mg/dL (0.2-1.3); Cholesterol 181 mg/dL (0-200); HDL Direct 51 mg/dL; Triglycerides 299 mg/dL (<150)
[2024-05-04 12:20] LABS: Creatinine Urine 127.1 mg/dL; Total Protein Urine Random 8 mg/dL; Ur Ttl Prot Creatinine Ratio 0.06 mg/mg (0-0.20)
[2024-05-04 12:25] LABS: LDL Cholesterol Direct 74 mg/dL
[2024-05-04 13:11] LABS: Vitamin D 25 Hydroxy 40.4 ng/mL
[2024-05-04 23:00] LABS: Albumin Level 4.7 g/dL (3.5-5.1); Anion Gap 6 mmol/L (4-12); Blood Urea Nitrogen 11 mg/dL (7-17); Calcium 9.7 mg/dL (8.4-10.2); Carbon Dioxide 26 mmol/L (22-30); Chloride 104 mmol/L (98-107); Estimated Glomerular Filt Rate > 60; Glucose 101 mg/dL (65-110); Potassium 3.8 mmol/L (3.4-5.0); Sodium 136 mmol/L (137-145)
== END 2024-05-04 11:35 | disposition home or self-care (01) ==
LOC: ANHLAB 11:36
PROVIDERS: PCP Family Medicine; Visit Provider Internal Medicine Nephrology
DX: E78.2 Mixed hyperlipidemia (principal); E78.5 Hyperlipidemia, unspecified; N18.31 Chronic kidney disease, stage 3a; E11.9 Type 2 diabetes mellitus without complications; E55.9 Vitamin D deficiency, unspecified; R53.83 Other fatigue
CPT/HCPCS: 36415; 80061; 80069; 80076; 82306; 82570; 83036; 84156; 84443; 85027

== ENCOUNTER 2024-07-03 12:41 | Emergency (ER) | payer BC, SELFPAY ==
--- NOTE | 2024-07-03 12:55 | ED_ITS ---
HPI - Extremity Injury (Upper) General Chief Complaint: Extremity Injury, Upper Stated Complaint: Left Hand Pain Time Seen by Provider: 07/03/24 13:00 Source: patient, RN notes reviewed and old records reviewed Mode of arrival: ambulatory Limitations: no limitations History of Present Illness HPI narrative: Patient presents with complaints of left hand pain. She reports that she is left-hand dominant, tripped the other day and caught herself on the door frame with her left hand. She did not actually fall. This happened 3 days ago, she has been taking Tylenol for her symptoms with moderate relief. She retains full range of motion to the affected hand, but does state that certain activities such as typing and gripping items exacerbate the pain. She denies any other injury or trauma. No other concerns today Related Data Home Medications ?Medication ?Instructions ?Recorded ?Confirmed ?Last Taken ?Type aspirin 81 mg tablet,delayed 81 mg PO DAILY 06/27/19 03/15/24 Unknown History release (Adult Low Dose Aspirin) calcium 600 mg (as 1 tablet PO BID 10/10/19 03/15/24 Unknown History carbonate)-vitamin D3 10 mcg (400 unit) tablet (Calcium with Vitamin D) zguwcfdkudds-Bw-uovt-minerals tablet PO 10/10/19 03/15/24 Unknown History (Multiple Vitamin, Womens tablet) Allergies Allergy/AdvReac Type Severity Reaction Status Date / Time codeine Allergy Unknown rash Verified 07/03/24 12:44 hydrocodone Allergy Unknown rash Verified 07/03/24 12:44 Review of Systems 2 Review of Systems: All systems reviewed & are unremarkable except as noted in HPI and below Constitutional: Constitutional: Reports no additional constitutional complaints ENT: Reports system reviewed and no additional complaints, except as documented Cardiovascular: Cardiovascular: Reports no additional cardiovascular complaints Respiratory: Respiratory: Reports no additional respiratory complaints Gastrointestinal: Gastrointestinal: Reports no additional gastrointestinal complaints Musculoskeletal: Musculoskeletal: Reports no additional musculoskeletal complaints and Reports as per HPI [facility] Past Medical History Medical History 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 of right middle finger Bronchitis Arthritic-like pain Kidney disease due to severe high blood pressure Type 2 diabetes mellitus Hyperlipidemia Hypertension Surgical History Surgical History H/O sinus surgery H/O left wrist surgery Hx of appendectomy H/O: hysterectomy History of tonsillectomy Family History Family History Mother Diabetes mellitus Family history of malignant neoplasm Rhabdomyosarcoma Sibling Hypertension Lymphoma Family history of malignant melanoma Crohn's disease Father Hypertension Cerebrovascular accident Social History Social History Smoking status: Never smoker Second hand tobacco smoke exposure: No Alcohol intake: never Substance use: never Substance use type: does not use Do You Feel Safe in your Home?: Yes Lack of Transportation: No Lack of Food: Never True Current Housing: I Have Housing Concerned About Future Housing: No Difficulty Paying Gas/Electric Bills: No Difficulty Paying for Meds: No Currently Unemployed: Decline to Answer Education: High School Diploma/GED Difficulty w/ Childcare or Family Care: No Living arrangements: alone Occupation/Education: occupation Gender identity (if verbalized by the patient): Female Comments At the time of my signature, I reviewed and agree with the nursing past medical, surgical, social, and family history. There is no relevant family history pertinent to the patient complaint. Exam 2 Const: General: cooperative, no acute distress, alert and awake O rientation/consciousness: oriented to person, oriented to place and oriented to time HENMT: Head: normal to inspection Resp: Effort & Inspection: normal respiratory effort and able to speak in complete sentences Auscultation: clear to auscultation bilaterally, no crackles, no rales, no rhonchi and no wheezes Cardio: Palpation: normal PMI Rate: regular rate Rhythm: regular rhythm Heart sounds: S1 normal heart sound present and S2 normal heart sound present Neuro: General: oriented to person, oriented to place and oriented to time Cranial nerves: Yes CN's II-XII intact bilaterally Extrem: Left upper extremity: normal capillary refill and hand neuromotor exam normal, neurosensory exam normal and tenderness of the dorsal hand Hand/finger images: 1. Tenderness and mild swelling Psych: Appearance: grossly normal Thought process: Normal thought process present Insight: Good insight present (Psych) Judgement: Good judgement present (Psych) Course Course Level of Care: Express Care Visit Vital Signs Vital signs: Reviewed MDM - Extremity Injury (Upper) MDM Narrative Medical decision making narrative: Patient with injury to left hand 3 days ago. Patient does not want to go to a different [facility] to get x-ray today, she would prefer to call her primary care provider to see if she can get an outpatient x-ray ordered that way. Supportive care measures discussed. Patient in no distress. Stable for discharge home. Discharge instructions reviewed with patient, as well as provided in writing per nursing staff. The instructions also include specific and strict return/GO TO THE ER as well as f/u information. All questions have been answered, and the patient deny any further questions with discharge and discharge plan. Some parts of this dictation were generated by voice recognition software and may contain typographical and/or grammatical inaccuracies. Differential Diagnosis Differential diagnosis: Likely fracture of hand and other (Musculoskeletal pain, sprain of hand) Medical Records Attestation: I reviewed the patient's medical records. Discharge Plan Discharge Clinical Impression: Hand pain, left Patient Disposition: Home, Self-Care Condition: Stable Instructions: Antibiotic Form, P.R.I.C.E. Treatment (ED) Additional Instructions: Follow-up with primary care provider. Emergency department for new or worse symptoms Patient Language: Greenlandic Prescriptions: No Action fluticasone propionate [Flonase Allergy Relief] 50 mcg/actuation spray,suspension 2 spray intranasal DAILY Qty: 16 0RF Rx Instructions: administer into each nostril aspirin [Adult Low Dose Aspirin] 81 mg tablet,delayed release (DR/EC) 81 mg PO DAILY Multiple Vitamin, Womens Tablet PO calcium carbonate-vitamin D3 [Calcium with Vitamin D] 600 mg(1,500mg) -400 unit tablet 1 tablet PO BID Farxiga 5 mg tablet 5 mg PO DAILY Qty: 30 11RF [place] Saline 0.65 % drops 2 drp intranasal QID PRN (Reason: dry nasal passages) Qty: 50 0RF (DME) lancets [Microlet Lancet] Misc See Rx Instructions .ROUTE .MEDSUPPLY Qty: 100 3RF Rx Instructions: Use to check blood sugar daily while fasting (DME) Contour Next Test Strips Strip See Rx Instructions .Route Qty: 100 8RF Rx Instructions: DAILY methocarbamol 500 mg tablet 500 mg PO TID PRN (Reason: muscle spasm) Qty: 90 0RF meclizine 12.5 mg tablet 12.5 mg PO TID PRN (Reason: dizziness) Qty: 90 0RF olmesartan 40 mg tablet See Rx Instructions .ROUTE .COMPLEX Qty: 90 3RF Dose Instruction: TAKE 1 TABLET BY MOUTH DAILY Rx Instructions: TAKE 1 TABLET BY MOUTH DAILY desloratadine [Clarinex] 5 mg tablet 5 mg PO DAILY Qty: 90 2RF metformin 500 mg tablet extended release 24 hr 500 mg PO QPM Qty: 90 2RF valacyclovir [Valtrex] 1 gram tablet 2,000 mg PO Q12H Qty: 4 3RF Rx Instructions: for 1 day nebivolol 20 mg tablet See Rx Instructions .ROUTE .COMPLEX Qty: 90 0RF Dose Instruction: TAKE 1 TABLET BY MOUTH DAILY Rx Instructions: TAKE 1 TABLET BY MOUTH DAILY Livalo 2 mg tablet See Rx Instructions .ROUTE .COMPLEX Qty: 30 6RF Dose Instruction: TAKE 1 TABLET BY MOUTH DAILY Rx Instructions: TAKE 1 TABLET BY MOUTH DAILY ondansetron HCl 4 mg tablet 4 mg PO Q8H PRN (Reason: nausea and vomiting) Qty: 10 0RF diltiazem HCl [Tiadylt ER] 300 mg capsule,extended release 24 hr See Rx Instructions .ROUTE .COMPLEX Qty: 90 3RF Dose Instruction: TAKE 1 CAPSULE(300 MG) BY MOUTH EVERY DAY Rx Instructions: TAKE 1 CAPSULE(300 MG) BY MOUTH EVERY DAY pantoprazole 40 mg tablet,delayed release (DR/EC) See Rx Instructions .ROUTE .COMPLEX Qty: 180 1RF Dose Instruction: TAKE 1 TABLET BY MOUTH TWICE DAILY Rx Instructions: TAKE 1 TABLET BY MOUTH TWICE DAILY tramadol 50 mg tablet 50 mg PO Q6H PRN (Reason: pain) Qty: 60 0RF Follow-up/Referrals: Adelina Valenzuela MD [Primary Care Provider] - Stand Alone Forms: Work/School Release IP Time of Disposition: 13:22
[2024-07-03 13:00] VITALS: BP 141/91; PULSE 68; RESP 20; TEMP 36.8; O2SAT 98
== END 2024-07-03 13:25 | disposition home or self-care (01) ==
PROVIDERS: Emergency Provider Nurse Practitioner Family; PCP Family Medicine
DX: M79.642 Pain in left hand (principal); I12.9 Hypertensive chronic kidney disease with stage 1 through stage 4 chronic kidney disease, or unspecified chronic kidney disease; E11.22 Type 2 diabetes mellitus with diabetic chronic kidney disease; N18.9 Chronic kidney disease, unspecified; Z79.84 Long term (current) use of oral hypoglycemic drugs; E78.5 Hyperlipidemia, unspecified; M19.041 Primary osteoarthritis, right hand; Z79.82 Long term (current) use of aspirin
CPT/HCPCS: 99212; G0463

== ENCOUNTER 2024-07-04 12:40 | Outpatient (CLI) | payer BC, SELFPAY ==
--- NOTE | ~2024-07-04 | XR_ITS ---
Left Hand Technique: PA, oblique, and lateral views were obtained. Clinical History: Pain Findings: No acute fracture or dislocation is seen. Osseous alignment is anatomic. Joint spaces are p reserved. Soft tissues are unremarkable. Impression: Unremarkable left hand. Reviewed, dictated and finalized at location M. OR STORAGE ENGINEER Impression: Unremarkable left hand.
--- OUTSIDE RECORDS SUMMARY | 2024-07-04 14:17 | XMS_ITS | Clinical Summary ---
Author Organization [facility] Address [address] [place] [address] Care Team Providers Care Corporate Real Estate Specialist Name Role Phone Amira Harris MD Primary Care Provider [phone] Allergies Active Allergy Reactions Criticality Noted Date Comments Codeine Rash Medium 04/17/2019 Medications traMADol (ULTRAM) 50 mg tablet Take 1-2 tablets every 4-6 hours as needed for pain. 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
--- OUTSIDE RECORDS SUMMARY | 2024-07-04 14:17 | XMS_ITS | Referral Summary ---
Author Organization [facility] Address [address] [place] [address] Care Team Providers Care Clinical Rehabilitation Coordinator Name Role Phone Unavailable Primary Care Provider Unavailabl e Source Comments [facility],non-owned Affiliates and Associated Physician Practices is amultiple site organization consisting of ambulatory clinics and hospital sitesin [place], [place], [place] and [place]. This disclosure is being madepursuant to the Care Everywhere program and may not contain all information available regarding this patient. Last updated 18.[facility] Allergies Active Allergy Reactions Criticality Noted Date Comments Codeine Rash Medium 02/10/2020 Immunizations Name Administration Dates Next Due INFLUENZA VACCINE, HIGH-DOSE , QUADR. (FLUZONE HIGH-DOSE QUADRIVALENT; 65Y+), 0.7 ML (HD-IIV4) 02/10/2020 Social History Tobacco Use Types Packs/Day Years Used Date Smoking Tobacco: Never Assessed Sex and Gender Information Value Date Recorded Sex Assigned at Not on file Gender Identity Not on file Sexual Orientation Not on file Plan of Treatment Not on file
--- OUTSIDE RECORDS SUMMARY | 2024-07-04 14:17 | XMS_ITS | Clinical Summary ---
Author Organization [facility] Address [address] [place] [address] Care Team Providers Care Packer And Carry Out Name Role Phone Unavailable Primary Care Provider Unavailabl e Source Comments [facility],non-owned Affiliates and Associated Physician Practices is amultiple site organization consisting of ambulatory clinics and hospital sitesin [place], [place], [place] and [place]. This disclosure is being madepursuant to the Care Everywhere program and may not contain all information available regarding this patient. Last updated 18.[facility] [employer] Allergies Active Allergy Reactions Criticality Noted Date [...] Orientation Not on file Plan of Treatment Health Maintenance Due Date Last Done Comments BONE DENSITY TESTING 1955 COLOGUARD (AGES 45-75) - COL ON CA SCREENING 1953 COLON MONITORING 1953 COLONOSCOPY - COLON CA SCREENING 1953 CT COLONOGRAPHY - COLON CA SCREENING 1955 Colorectal Cancer Screening 1953 FIT - COLON CA SCREENING 1953 FLEX SIG - COLON CA SCREENING 1953 LIPID TESTING 1955 MAMMOGRAM 1953 HEPATITIS C SCREENING 11/21/1971 DTAP/TDAP/TD VACCINES (1 - Tdap) 1972 PNEUMOCOCCAL VACCINE 50+ (1 of 1 - PCV) 11/26/2003 ZOSTER VACCINE (1 of 2) 11/26/2003 COVID-19 VACCINE (2023-2 5 season) 2024 INFLUENZA VACCINE (#1) 2024 02/10/2020 DEPRESSION SCREENING 05/10/2024 Respiratory Syncytial Virus (RSV) Vaccine Pt: or over 60 yrs (1 - 1-dose 75+ series) 2028 HEPATITIS B VACCINE Aged Out No longe r eligible based on patient's age to complete this topic HIB VACCINE Aged Out No longer eligi ble based on patient's age to complete this topic HPV VACCINE Aged Out No longer eligi ble based on patient's age to complete this topic MENINGOCOCCAL (Group B) VACCINE Aged Out No longer eligible based on patient's age to complete this topic MENINGOCOCCAL VACCINE Aged Out No erin bell eligible based on patient's age to complete this topic
--- OUTSIDE RECORDS SUMMARY | 2024-07-04 14:17 | XMS_ITS | CONTINUITY OF CARE DOCUMENT ---
Author Name henry hasmukhmaci Address Unknown Organization [facility] Address [address] [place] [address] Phone [phone] Care Team Providers Care Human Resources Project Manager Name Role Phone Raul BAZZI, Ebenezer Unavailable BRAD BAZZI, PHILIP Unavailable INSURANCE PROVIDERS Payer name Policy type / Coverage type [place] red alliance party ID [facility] Blue [facility] [id number]
--- OUTSIDE RECORDS SUMMARY | 2024-07-04 14:17 | XMS_ITS | Clinical Summary ---
Author Organization [facility] Address [address] [place] [address] Phone Care Team Providers Care Psychologist Personnel Name Role Phone Valeriy Ojeda MD Primary Care Provider [phone] Allergies Active Allergy Reactions Criticality Noted Date Comments Codeine Rash Medium 04/17/2019 Medications Medication Sig Dispensed Refills Start Date End Date Status Choline Fenofibrate (Fenofibric Acid) 135 MG capsule delayed-release 02/12/2020 Active desloratadine (CLARINEX) 5 MG tablet TK 1 T PO D 01/05/2020 Active Microlet Lancets misc USE TO CHECK BLOOD SUGAR D WHILE FASTING 02/07/2020 Active metFORMIN XR 500 MG 24 hr tablet 02/13/2020 Active Bystolic 10 MG tablet 02/12/2020 Active olmesartan (BENICAR) 40 MG tablet 02/13/2020 Active pantoprazole (PROTONIX) 40 MG EC tablet 02/13/2020 Active Livalo 2 MG tablet 02/13/2020 Active Contour Next Test test strip USE DIRECTED ON PACKAGING 11/12/2020 Active chlorthalidone (HYGROTON) 25 MG tablet Take 1 tablet (25 mg total) by mouth 1 (one) time each day 30 tablet 11 06/23/2021 Active dilTIAZem (Tiadylt ER) 300 MG 24 hr capsule TAKE 1 CAPSULE(300 MG) BY MOUTH 1 TIME EACH DAY 90 capsule 3 04/03/2022 Active Active Problems Problem Noted Date Diagnosed Date Essential hypertension 02/14/2020 Stage 3b chronic kidney disease 02/14/2020 Type 2 diabetes mellitus 02/14/2020 Other and unspecified hyperlipidemia 02/14/2020 Pain of left hand 04/17/2019 Immunizations Name Administration Dates Next Due Influenza Split High Dose Preservative Free IM 1 Influenza TIV (IM) 03/10/2021 Pneumococcal Conjugate 03/10/2020 Family History Medical History Relation Comments Hypertension Father Hypertension Mother Relation Status Comments Father Mother Social History Tobacco Use Types Packs/Day Years Used Date Smoking Tobacco: Never Smokeless Tobacco: Never Alcohol Use Standard Drinks/Week Comments Not Currently 0 (1 standard drink = 0.6 oz pur e alcohol) Sex and Gender Information Value Date Recorded Sex Assigned at Not on file Gender Identity Not on file Sexual Orientation Not on file Last Filed Vital Signs Vital Sign Reading Time Taken Comments Blood Pressure 146/60 11/24/2021 9:49 AM CDT Pulse 84 11/24/2021 9:49 AM CDT Temperature 35 C (95 F) 11/24/2021 9:49 AM CDT Respiratory Rate - - Oxygen Saturation - - Inhaled Oxygen Concentration - - Weight 114 kg (251 lb) 11/24/2021 9:49 AM CDT Height 165.1 cm (5' 5 ) 11/24/2021 9:49 AM CDT Body Mass Index 41.77 11/24/2021 9:49 AM CDT Plan of Treatment Health Maintenance Due Date Last Done Comments Pneumococcal PPSV23/PCV13 65 + Years / Low and Medium Risk (1 of 4 - PCV) 2018 Influenza Vaccine (#1) 2024 03/10/2021 Care Teams Psychologist Personnel Relationship Specialty Start Date End Date Valeriy Ojeda MD [address] [place] [id number] PCP - General Family Medicine 05/16/20
--- OUTSIDE RECORDS SUMMARY | 2024-07-04 14:17 | XMS_ITS | Referral Summary ---
Author Organization [facility] Address [address] [place] [address] Care Team Providers Care Veterinary Assistant Name Role Phone Amira Harris MD Primary Care Provider [phone] Allergies Active Allergy Reactions Criticality Noted Date Comments Codeine Rash Medium 04/17/2019 Medications traMADol (ULTRAM) 50 mg tablet Take 1-2 tablets every 4-6 hours as needed for pain. 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
--- OUTSIDE RECORDS SUMMARY | 2024-07-04 14:17 | XMS_ITS | Patient Health Summary ---
Author Organization [facility] Address [address] [address] Care Team Providers Care Talent Acquisition Sourcer Name Role Phone Unavailable Primary Care Provider Unavailabl e Note from [facility],non-owned Affiliates and Associated Physician Practices is amultiple site organization consisting of ambulatory clinics and hospital sitesin [place] and [place]. This disclosure is being madepursuant to the Care Everywhere program and may not contain all information available regarding this patient. Last updated 18.[facility] Allergies * Codeine(Rash) -Medium Criticality Immunizations * INFLUENZA VACCINE, HIGH-DOSE, QUADR. (FLUZONE HIGH-DOSE QUADRIVALENT; 65Y+), 0.7 ML (HD-IIV4)(Given 02/10/2020) Social History Tobacco Use Types Packs/Day Years Used Date Smoking Tobacco: Never Assessed Sex and Gender Information Value Date Recorded Sex Assigned at Not on file Gender Identity Not on file Sexual Orientation Not on file
--- OUTSIDE RECORDS SUMMARY | 2024-07-04 14:17 | XMS_ITS | Clinical Summary ---
Author Organization [facility] Address [address] [place] [address] Care Team Providers Care Skein Straightener Name Role Phone Adelina Valenzuela MD Primary Care Provider [phone] Allergies Active Allergy Reactions Criticality Noted Date Comments Codeine Swelling High 05/13/2022 Facial/ Throat swelling Medications pantoprazole EC (PROTONIX) 40 MG tablet Take 1 tablet (40 mg total) by mouth daily. Active desloratadine (CLARINEX) 5 MG Tab tablet 1 tablet (5 mg total) daily. Active pitavastatin (LIVALO) 2 MG Tab Take 1 tablet (2 mg total) by mouth nightly at bedtime. Active olmesartan 40 MG Tab Take 1 tablet (40 mg total) by mouth daily. Active aspirin EC (ECOTRIN) 81 MG tablet Take 1 tablet (81 mg total) by mouth daily. Active dilTIAZem ER (TIAZAC) 300 MG 24 hr capsule Take 1 capsule (300 mg total) by mouth daily. Active chlorthalidone (HYGROTEN) 25 MG tablet Take 1 tablet (25 mg total) by mouth daily. Active vitamin C (ASCORBIC ACID) 500 MG tablet Take 1 tablet (500 mg total) by mouth daily. Active Calcium Citrate-Vitamin D 250-5 MG-MCG Tab Active metFORMIN (GLUCOPHAGE) 500 MG tablet Take 1 tablet (500 mg total) by mouth 2 (two) times daily with meals. Active CONTOUR NEXT TEST test strip USE TO TEST DAILY DIRECTED. 3 Active Microlet Lancets Misc USE DIRECTED TO CHECK BLOOD SUGAR DAILY WHILE FASTING 2 Active metFORMIN ER (GLUCOPHAGE-XR) 500 MG 24 hr tablet Take 1 tablet (500 mg total) by mouth daily with supper. 3 Active traMADol (ULTRAM) 50 MG tablet 3 Active dilTIAZem ER (TIADYLT ER) 300 MG 24 hr capsule TAKE 1 CAPSULE(300 MG) BY MOUTH 1 TIME EACH DAY 2 Active meclizine (ANTIVERT) 12.5 MG tablet take 1 tablet by mouth three times daily as needed for dizziness 4 Active nebivolol (BYSTOLIC) 20 MG tablet Take 1 tablet (20 mg total) by mouth daily. 4 Active Active Problems Problem Noted Date Diagnosed Date Lumbar radiculopathy 06/05/2022 Overview (06/05/2022): Added automatically from request for surgery [id number] Family History Medical History Relation Comments Hypertension Brother Heart Disease Father Diabetes Mother Hypertension Sister Relation Status Comments Brother Father Mother Sister Social History Tobacco Use Types Packs/Day Years Used Date Smoking Tobacco: Never Smokeless Tobacco: Never Tobacco Cessation:Counseling Given: Not Answered Alcohol Use Standard Drinks/Week Comments Never 0 (1 standard drink = 0.6 oz pur e alcohol) Comments No Sex and Gender Information Value Date Recorded Sex Assigned at Not on file Legal Sex Female 9:28 AM VP COMPLIANCE Gender Identity Not on file Sexual Orientation Not on file Last Filed Vital Signs Vital Sign Reading Time Taken Comments Blood Pressure 177/55 10/12/2023 12:58 PM CDT Pulse 78 10/12/2023 1:32 PM CDT Temperature 36.5 C (97.7 F) 10/12/2023 12:58 PM CDT Respiratory Rate 18 10/12/2023 1:32 PM CDT Oxygen Saturation 94% 10/12/2023 1:32 PM CDT Inhaled Oxygen Concentration - - Weight 113.1 kg (249 lb 6.4 oz) 024 12:58 PM CDT Height 165.1 cm (5' 5 ) 10/12/2023 12:5 8 PM CDT Body Mass Index 41.5 10/12/2023 12:58 PM CDT Plan of Treatment Health Maintenance Due Date Last Done Comments Colorectal Cancer Screening Colonoscopy (10 Years) 1953 Hepatitis C 11/26/1971 Mammogram Screening 1993 RSV Immunization or 60+ Years (1 - Risk 60-74 years 1-dose series) 2013 Dexa Scan (General) 2018 Pneumococcal Vaccine: 65+ Years (2 of 2 - PCV) 03/11/2021 03/11/2020, 03/10/2020 COVID-19 Vaccine ( - season) 2024 10/28/2021, 04/08/2021, 06/15/2020, Additional history exists Influenza Adult (#1) 2024 03/10/2021, 02/07/2021, 02/10/2020, Additional history exists DTaP, Tdap and Td Vaccines (2 - Td or Tdap) 07/15/2028 07/15/2018, 09/24/2004 Zoster Vaccines Completed 12/20/2020, 10/18/2020 Meningococcal B Vaccine Aged Out No l onger eligible based on patient's age to complete this topic Meningococcal Vaccine Aged Out No erni bell eligible based on patient's age to complete this topic RSV Immunizations Under 20 Months Aged Out No longer eligible based on patient's age to complete this topic Insurance MEDICARE PART A Care Teams Skein Straightener Relationship Specialty Start Date End Date Adelina Valenzuela MD [address] [place] [address] PCP - General FAMILY PRACTICE 05/13/22
== END 2024-07-04 12:41 | disposition home or self-care (01) ==
PROVIDERS: PCP Family Medicine; Visit Provider Student in an Organized Health Care Education/Training Program
DX: M79.642 Pain in left hand (principal)
CPT/HCPCS: 73130

== ENCOUNTER 2024-08-02 12:32 | Outpatient (CLI) | payer BC, SELFPAY ==
[2024-08-02 13:13] LABS: Creatinine Urine 47.5 mg/dL; Total Protein Urine Random 15 mg/dL; Ur Ttl Prot Creatinine Ratio 0.32 mg/mg (0-0.20)
[2024-08-02 13:14] LABS: Albumin Level 5.1 g/dL (3.5-5.1); Anion Gap 15 mmol/L (4-12); Blood Urea Nitrogen 14 mg/dL (7-17); Calcium 10.2 mg/dL (8.4-10.2); Carbon Dioxide 24 mmol/L (22-30); Chloride 98 mmol/L (98-107); Estimated Glomerular Filt Rate > 60; Glucose 102 mg/dL (65-110); Phosphorus 4.3 mg/dL (2.5-4.5); Potassium 4.3 mmol/L (3.4-5.0); Sodium 137 mmol/L (137-145)
--- OUTSIDE RECORDS SUMMARY | 2024-08-02 13:34 | XMS_ITS | Clinical Summary ---
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
--- OUTSIDE RECORDS SUMMARY | 2024-08-02 13:34 | XMS_ITS | Clinical Summary ---
Author Organization [facility] Address [address] [place] [address] Care Team Providers Care City Clerk Name Role Phone Adelina Valenzuela MD Primary Care Provider [phone] Allergies Active Allergy Reactions Criticality Noted Date [...] (06/05/2022): Added automatically from request for surgery [id number] Family History Medical History Relation Comments Hypertension [...] on file Legal Sex Female 9:28 AM INSURANCE PRODUCER Gender Identity Not on file Sexual Orientation [...] this topic Meningococcal Vaccine Aged Out No erin bell eligible based on patient's age to complete this topic RSV Immunizations Under 20 Months Aged Out No longer eligible based on patient's age to complete this topic Insurance MEDICARE PART A Care Teams City Clerk Relationship Specialty Start Date End Date Adelina Valenzuela MD [address] [place] [address] PCP - General FAMILY PRACTICE 05/13/22
--- OUTSIDE RECORDS SUMMARY | 2024-08-02 13:34 | XMS_ITS | Clinical Summary ---
Author Organization [facility] Address [address] [place] [address] Phone Care Team Providers Care Manager University Name Role Phone Valeriy Ojeda MD Primary Care Provider [phone] Allergies Active Allergy Reactions Criticality Noted Date [...] Influenza Vaccine (#1) 2024 03/10/2021 Care Teams Manager University Relationship Specialty Start Date End Date Valeriy Ojeda MD [address] [place] [id number] PCP - General Family Medicine 05/16/20
--- OUTSIDE RECORDS SUMMARY | 2024-08-02 13:34 | XMS_ITS | Clinical Summary ---
Author Organization [facility] Address [address] [facility] [place] [address] Care Team Providers Care Risk Consulting Treasury Director Name Role Phone Unavailable Primary Care Provider Unavailabl e Source Comments [facility],non-owned Affiliates and Associated Physician Practices is amultiple site organization consisting of ambulatory clinics and hospital sitesin [place], [place], [place] and [place]. This disclosure is being madepursuant to the Care Everywhere program and may not contain all information available regarding this patient. Last updated 18.[facility] [employer] Allergies Active Allergy Reactions Criticality Noted Date [...] to complete this topic MENINGOCOCCAL (Group B) VACC INE SHARED DECISION-MAKING Aged Out No longer eligibl e based on patient's age to complete this topic MENINGOCOCCAL GROUPS A/C/Y/W VACCINE Aged Out No longer eligible b ased on patient's age to complete this topic
--- OUTSIDE RECORDS SUMMARY | 2024-08-02 13:34 | XMS_ITS | CONTINUITY OF CARE DOCUMENT ---
Author Name henry hasmukhmaci Address Unknown Organization [facility] Address [address] [place] [address] Phone [phone] Care Team Providers Care Resistor Inspector Name Role Phone Raul BAZZI, Ebenezer Unavailable BRAD BAZZI, PHILIP Unavailable INSURANCE PROVIDERS Payer name Policy type / Coverage type [place] red libertarian ID [facility] Blue [facility] [id number]
--- OUTSIDE RECORDS SUMMARY | 2024-08-02 13:34 | XMS_ITS | Referral Summary ---
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
== END 2024-08-02 12:33 | disposition home or self-care (01) ==
PROVIDERS: PCP Family Medicine; Visit Provider Internal Medicine Nephrology
DX: N18.31 Chronic kidney disease, stage 3a (principal)
CPT/HCPCS: 36415; 80069; 82570; 84156

== ENCOUNTER 2024-08-18 11:18 | Outpatient (CLI) | payer BC, SELFPAY ==
--- OUTSIDE RECORDS SUMMARY | 2024-08-18 11:45 | XMS_ITS | Referral Summary ---
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
--- OUTSIDE RECORDS SUMMARY | 2024-08-18 11:45 | XMS_ITS | CONTINUITY OF CARE DOCUMENT ---
Author Name henry hasmukhmaci Address Unknown Organization [facility] Address [address] [place] [address] Phone [phone] Care Team Providers Care Card Stripper Name Role Phone Raul BAZZI, Ebenezer Unavailable BRAD BAZZI, PHILIP Unavailable INSURANCE PROVIDERS Payer name Policy type / Coverage type [place] red libertarian ID [facility] Blue [facility] [id number]
--- OUTSIDE RECORDS SUMMARY | 2024-08-18 11:45 | XMS_ITS | Clinical Summary ---
Author Organization [facility] Address [address] [place] [address] Phone Care Team Providers Care Graduate Teacher Education Name Role Phone Valeriy Ojeda MD Primary Care Provider [phone] Allergies Active Allergy Reactions Criticality Noted Date Comments Codeine Rash Medium 04/17/2019 Medications Choline Fenofibrate (Fenofibric Acid) 135 MG capsule delayed-release 0 Active desloratadine (CLARINEX) 5 MG tablet TK 1 T PO D 0 Active Microlet Lancets misc USE TO CHECK BLOOD SUGAR D WHILE FASTING 0 Active metFORMIN XR 500 MG 24 hr tablet 0 Active Bystolic 10 MG tablet 0 Active olmesartan (BENICAR) 40 MG tablet 0 Active pantoprazole (PROTONIX) 40 MG EC tablet 0 Active Livalo 2 MG tablet 0 Active Contour Next Test test strip USE DIRECTED ON PACKAGING 1 Active chlorthalidone (HYGROTON) 25 MG tablet Take 1 tablet (25 mg total) by mouth 1 (one) time each day 30 tablet 11 2 Active dilTIAZem (Tiadylt ER) 300 MG 24 hr capsule TAKE 1 CAPSULE(300 MG) BY MOUTH 1 TIME EACH DAY 90 capsule 3 2 Active Active Problems Problem Noted Date Diagnosed Date Essential hypertension 02/14/2020 Stage 3b chronic kidney disease 02/14/2020 Type 2 diabetes mellitus 02/14/2020 Other and unspecified hyperlipidemia 02/14/2020 Pain of left hand 04/17/2019 Immunizations Immunization Administration Dates Next Due Influenza Split High [...] = 0.6 oz pur e alcohol) Comments Unknown Sex and Gender Information Value Date Recorded Sex Assigned at Not on file Legal Sex Female 7:33 AM MDT Gender Identity Not on file Sexual Orientation [...] Medium Risk (1 of 4 - PCV) 11/26/2003 Influenza Vaccine (Season Ended) 2025 03/10/[address] [place] [address] Care Teams Graduate Teacher Education Relationship Specialty Start Date End Date Valeriy Ojeda MD [address] [employer] [address] [phone] PCP - General Family Medicine 05/16/20
--- OUTSIDE RECORDS SUMMARY | 2024-08-18 11:45 | XMS_ITS | Clinical Summary ---
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 [place] Care Teams Oracle Soa Developer Relationship Specialty Start Date End Date Amira Harris MD PCP - General Family Practice 03/27/19
--- OUTSIDE RECORDS SUMMARY | 2024-08-18 11:45 | XMS_ITS | Clinical Summary ---
Author Organization [facility] Address [address] [facility] [place] [address] Care Team Providers Care Neonatologist Name Role Phone Unavailable Primary Care Provider Unavailabl e Source Comments [facility],non-owned Affiliates and Associated Physician Practices is amultiple site organization consisting of ambulatory clinics and hospital sitesin [place], [place], [place] and [place]. This disclosure is being madepursuant to the Care Everywhere program and may not contain all information available regarding this patient. Last updated 18.[facility] [employer] Allergies Active Allergy Reactions Criticality Noted Date [...] 11/26/2003 COVID-19 VACCINE (2023-2 5 season) 2024 DEPRESSION SCREENING 05/10/2024 INFLUENZA VACCINE (Season Ended) 2025 02/10/20 20 Respiratory Syncytial Virus (RSV) Vaccine Pt: or [...]
--- OUTSIDE RECORDS SUMMARY | 2024-08-18 11:45 | XMS_ITS | Clinical Summary ---
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
[2024-08-18 12:27] LABS: Anion Gap 14 mmol/L (4-12); Blood Urea Nitrogen 15 mg/dL (7-17); Carbon Dioxide 24 mmol/L (22-30); Chloride 96 mmol/L (98-107); Estimated Glomerular Filt Rate > 60; Glucose 132 mg/dL (65-110); Potassium 4.3 mmol/L (3.4-5.0); Sodium 134 mmol/L (137-145)
== END 2024-08-18 11:19 | disposition home or self-care (01) ==
LOC: ANHLAB 11:19
PROVIDERS: PCP Family Medicine; Visit Provider Internal Medicine Nephrology
DX: N18.31 Chronic kidney disease, stage 3a (principal)
CPT/HCPCS: 36415; 80048

== ENCOUNTER 2024-09-29 11:30 | Outpatient (CLI) | payer BC, SELFPAY ==
--- OUTSIDE RECORDS SUMMARY | 2024-09-29 11:33 | XMS_ITS | CONTINUITY OF CARE DOCUMENT ---
Author Name henry hasmukhmaci Address Unknown Organization [facility] Address [address] [place] [address] Phone [phone] Care Team Providers Care Process Eng Name Role Phone Raul BAZZI, Ebenezer Unavailable [phone] BRAD BAZZI, PHILIP Unavailable INSURANCE PROVIDERS Payer name Policy type / Coverage type [place] red democrat ID [facility] Blue [facility] [id number]
--- OUTSIDE RECORDS SUMMARY | 2024-09-29 11:33 | XMS_ITS | Clinical Summary ---
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
--- OUTSIDE RECORDS SUMMARY | 2024-09-29 11:33 | XMS_ITS | Referral Summary ---
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
--- OUTSIDE RECORDS SUMMARY | 2024-09-29 11:33 | XMS_ITS | Clinical Summary ---
Author Organization [facility] Address [address] [facility] [place] [address] Care Team Providers Care Licensed Chemical Spray Technician Name Role Phone Unavailable Primary Care Provider Unavailabl e Source Comments [facility],non-owned Affiliates and Associated Physician Practices is amultiple site organization consisting of ambulatory clinics and hospital sitesin [place], [place], [place] and [place]. This disclosure is being madepursuant to the Care Everywhere program and may not contain all information available regarding this patient. Last updated 18.[facility] [employer] [place] Allergies Active Allergy Reactions Criticality Noted Date Comments Codeine Rash Medium 02/10/2020 Immunizations Immunization Administration Dates Next Due INFLUENZA VACCINE, HIGH-DOSE , QUADR. (FLUZONE HIGH-DOSE QUADRIVALENT; 65Y+), 0.7 ML (HD-IIV4) 02/10/2020 Social History Tobacco Use Types Packs/Day Years Used Date Smoking Tobacco: Never Assessed Comments Unknown Sex and Gender Information Value Date Recorded Sex Assigned at Not on file Legal Sex Female 3:24 PM CDT Gender Identity Not on file Sexual Orientation [...] VACCINE (1 of 2) 11/26/2003 COVID-19 VACCINE (1 - 2023-2 5 season) 2024 DEPRESSION SCREENING 05/10/2024 INFLUENZA VACCINE (Season Ended) 2025 02/10/20 Respiratory Syncytial Virus (RSV) Vaccine Pt: or [...] patient's age to complete this topic Insurance [facility]
--- OUTSIDE RECORDS SUMMARY | 2024-09-29 11:33 | XMS_ITS | Clinical Summary ---
Author Organization [facility] Address [address] [place] [address] Phone Care Team Providers Care Tank Car Loader Name Role Phone Valeriy Ojeda MD Primary Care Provider [phone] Allergies Active Allergy Reactions Criticality Noted Date [...] Vaccine (Season Ended) 2025 03/10/[address] [place] [address] Care Teams Tank Car Loader Relationship Specialty Start Date End Date Valeriy Ojeda MD [address] [phone] PCP - General Family Medicine 05/16/20
[2024-09-29 12:06] LABS: Hemoglobin A1C 6.1 % (<5.7)
[2024-09-29 12:08] LABS: Alanine Aminotransferase 28 U/L (6-35); Albumin Level 5.1 g/dL (3.5-5.1); Alkaline Phosphatase 70 U/L (38-126); Anion Gap 12 mmol/L (4-12); Aspartate Amino Transferase 39 U/L (14-36); Bilirubin,Total 0.9 mg/dL (0.2-1.3); Blood Urea Nitrogen 13 mg/dL (7-17); Calcium 9.8 mg/dL (8.4-10.2); Carbon Dioxide 28 mmol/L (22-30); Chloride 98 mmol/L (98-107); Cholesterol 206 mg/dL (0-200); Estimated Glomerular Filt Rate > 60; Glucose 107 mg/dL (65-110); HDL Direct 66 mg/dL; Potassium 4.4 mmol/L (3.4-5.0); Sodium 138 mmol/L (137-145); Triglycerides 324 mg/dL (<150)
[2024-09-29 12:19] LABS: LDL Cholesterol Direct 85 mg/dL
[2024-10-03 15:38] LABS: Rubella IgG Antibody 5.31 Index; Rubeola Measles IgG >300.00 AU/mL
== END 2024-09-29 11:31 | disposition home or self-care (01) ==
LOC: ANHLAB 11:31
PROVIDERS: PCP Family Medicine; Visit Provider Family Medicine
DX: E78.2 Mixed hyperlipidemia (principal); E11.9 Type 2 diabetes mellitus without complications; Z11.59 Encounter for screening for other viral diseases
CPT/HCPCS: 36415; 80053; 80061; 83036; 86735; 86762; 86765

== ENCOUNTER 2025-02-08 10:46 | Outpatient (CLI) | payer BC, SELFPAY ==
--- OUTSIDE RECORDS SUMMARY | 2025-02-08 11:18 | XMS_ITS | Clinical Summary ---
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
--- OUTSIDE RECORDS SUMMARY | 2025-02-08 11:18 | XMS_ITS | Clinical Summary ---
Author Organization [facility] Address [address] [facility] [place] [address] Care Team Providers Care Deckhand Crab Boat Name Role Phone Unavailable Primary Care Provider Unavailabl e Source Comments [facility],non-owned Affiliates and Associated Physician Practices is amultiple site organization consisting of ambulatory clinics and hospital sitesin [place], [place], [place] and [place]. This disclosure is being madepursuant to the Care Everywhere program and may not contain all information available regarding this patient. Last updated 18.[facility] [employer] Allergies Active Allergy Reactions Criticality Noted Date [...] 11/26/2003 ZOSTER VACCINE (1 of 2) 11/26/2003 DEPRESSION SCREENING 05/10/2024 COVID-19 VACCINE (1 - 2023-2 5 season) 2025 INFLUENZA VACCINE (#1) 2025 02/10/2020 Respiratory Syncytial Virus (RSV) Vaccine Pt: or [...] patient's age to complete this topic Insurance [facility] Address: [facility] [address] [place] [address]
--- OUTSIDE RECORDS SUMMARY | 2025-02-08 11:18 | XMS_ITS | Clinical Summary ---
Author Organization [facility] Address [address] [place] [address] Phone Care Team Providers Care Local Operator Name Role Phone Valeriy Ojeda MD Primary Care Provider [phone] Allergies Active Allergy Reactions Criticality Noted Date [...] 9:49 AM CDT Height 165.1 cm (5' 5) 11/24/2021 9:49 AM CDT Body Mass Index 41.77 11/24/2021 9:49 AM CDT Plan of Treatment Health Maintenance Due Date Last Done Comments Pneumococcal PPSV23/PCV13 65 + Years / Low and Medium Risk (1 of 2 - PCV) 11/26/2003 Influenza Vaccine (#1) 2025 03/10/2021 Insurance Care Teams Local Operator Relationship Specialty Start Date End Date Valeriy Ojeda MD [email or web address] [phone] PCP - General Family Medicine 05/16/20
[2025-02-08 11:29] LABS: Hematocrit 42.6 % (37.0-47.0); Hemoglobin 14.4 g/dL (12.0-15.0); Mean Corpuscular HGB Conc 33.8 g/dl (32-36); Mean Corpuscular Hemoglobin 30.5 pg (26-34); Mean Corpuscular Volume 90.3 fl (80-100); Platelet Count Result 311 k/mm3 (150-375); Red Blood Count 4.72 M/mm3 (4.2-5.4); White Blood Count 7.7 K/mm3 (4.5-10.0)
[2025-02-08 11:48] LABS: Total Protein Urine Random 11 mg/dL; Ur Ttl Prot Creatinine Ratio 0.35 mg/mg (0-0.20)
[2025-02-08 11:51] LABS: Albumin Level 5.0 g/dL (3.5-5.1); Anion Gap 14 mmol/L (4-12); Blood Urea Nitrogen 10 mg/dL (7-17); Calcium 9.8 mg/dL (8.4-10.2); Carbon Dioxide 24 mmol/L (22-30); Chloride 96 mmol/L (98-107); Estimated Glomerular Filt Rate > 60; Glucose 101 mg/dL (65-110); Potassium 4.0 mmol/L (3.4-5.0); Sodium 134 mmol/L (137-145)
[2025-02-08 12:03] LABS: Parathyroid Intact 30.3 pg/mL (14.5-75.2)
== END 2025-02-08 10:47 | disposition home or self-care (01) ==
LOC: ANHLAB 10:47
PROVIDERS: PCP Family Medicine; Visit Provider Internal Medicine Nephrology
DX: N18.31 Chronic kidney disease, stage 3a (principal)
CPT/HCPCS: 36415; 80069; 82570; 83970; 84156; 85027

== ENCOUNTER 2025-03-30 13:36 | Outpatient (CLI) | payer BC, SELFPAY ==
--- NOTE | ~2025-03-30 | XR_ITS ---
EXAMINATION: XR abdomen obstructive series, 03/30/2025 13:41 FORESTER AIDE HISTORY: K59.00 - Constipation, unspecified COMPARISON: No comparisons available. Technique: 3 view. Findings: No significant fecal content, there are no dilated bowel loops No free air. No abnormal calcifications No acute osseous abnormality. Impression: 1. No acute abnormality. Reviewed, dictated and finalized at location P. STER AIDE Impression: 1. No acute abnormality.
--- OUTSIDE RECORDS SUMMARY | 2025-03-30 13:43 | XMS_ITS | Clinical Summary ---
Author Organization [facility] Address [address] [place] [address] Care Team Providers Care Manager Gaming Name Role Phone Adelina Valenzuela MD Primary Care Provider [phone] Allergies Active Allergy Reactions Criticality Noted Date [...] (06/05/2022): Added automatically from request for surgery [id number] Family History Medical History Relation Comments Hypertension [...] on file Legal Sex Female 9:28 AM FINANCIAL EXAMINER Gender Identity Not on file Sexual Orientation [...] 12:58 PM CDT Height 165.1 cm (5' 5) 10/12/2023 12:5 8 PM CDT Body Mass Index 41.5 10/12/2023 12:58 PM CDT Plan of Treatment Health Maintenance Due Date Last Done Comments Colorectal Cancer Screening Colonoscopy (10 Years) 1953 Hepatitis C 11/26/1971 Mammogram Screening 1993 RSV Immunization or 60+ Years (1 - Risk 60-74 years 1-dose series) 2013 Dexa Scan (General) 2018 Pneumococcal Vaccine: 50+ Years (2 of 2 - PCV) 03/11/2021 03/11/2020, 03/10/2020 COVID-19 Vaccine ( - season) 2025 10/28/2021, 04/08/2021, 06/15/2020, Additional history exists Influenza Adult (#1) 2025 03/10/2021, 02/07/2021, 02/10/2020, Additional history exists DTaP, Tdap and Td Vaccines (2 - Td or Tdap) 07/15/2028 07/15/2018, 09/24/2004 Zoster Vaccines Completed 12/20/2020, 10/18/2020 Hepatitis A Vaccines Aged Out No long er eligible based on patient's age to complete this topic Meningococcal B Vaccine Aged Out No l onger eligible based on patient's age to complete this topic Meningococcal Vaccine Aged Out No erin bell eligible based on patient's age to complete this topic RSV Immunizations Under 20 Months Aged Out No longer eligible based on patient's age to complete this topic Insurance MEDICARE PART A [facility] Care Teams Manager Gaming Relationship Specialty Start Date End Date Adelina Valenzuela MD [address] [place] [address] PCP - General FAMILY PRACTICE 05/13/22
--- OUTSIDE RECORDS SUMMARY | 2025-03-30 13:43 | XMS_ITS | Clinical Summary ---
Author Organization [facility] Address [address] [facility] [place] [address] Care Team Providers Care Exhibit Designer Name Role Phone Unavailable Primary Care Provider Unavailabl e Source Comments [facility],non-owned Affiliates and Associated Physician Practices is amultiple site organization consisting of ambulatory clinics and hospital sitesin [place], [place], [place] and [place]. This disclosure is being madepursuant to the Care Everywhere program and may not contain all information available regarding this patient. Last updated 18.[facility] [employer] Allergies Active Allergy Reactions Criticality Noted Date [...] DEPRESSION SCREENING 05/10/2024 COVID-19 VACCINE (1 - 2024-2 6 season) 2025 INFLUENZA VACCINE (#1) 2025 02/10/2020 [...] to complete this topic Insurance [facility]
--- OUTSIDE RECORDS SUMMARY | 2025-03-30 13:43 | XMS_ITS | Clinical Summary ---
Author Organization [facility] Address [address] [place] [address] Phone Care Team Providers Care Fork Lift Truck Operator Name Role Phone Valeriy Ojeda MD Primary Care Provider [phone] Allergies Active Allergy Reactions Criticality Noted Date [...] Vaccine (#1) 2025 03/10/2021 Insurance Care Teams Fork Lift Truck Operator Relationship Specialty Start Date End Date Valeriy Ojeda MD [email or web address] [phone] PCP - General Family Medicine 05/16/20
--- OUTSIDE RECORDS SUMMARY | 2025-03-30 13:43 | XMS_ITS | Clinical Summary ---
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
== END 2025-03-30 13:37 | disposition home or self-care (01) ==
DX: K59.00 Constipation, unspecified (principal)
CPT/HCPCS: 74019